=== PATIENT | female | born 2000 | race African-American/Black ===

== ENCOUNTER 2020-07-13 10:25 | Emergency (ER) | payer MEDICAID ==
[~2020-07-13] VITALS: Ht 162.6 cm; Wt 61.0 kg
[2020-07-13 10:28] VITALS: BP 136/86
[2020-07-13] MEDS ORDERED: TETRACAINE 0.5% OPHTH DROPS 4ML LEFTEYE ONE (12:30)
[2020-07-13] MEDS ORDERED: FLUORESCEIN SODIUM 1MG/STRIP LEFTEYE ONE (12:30)
== END 2020-07-13 13:24 | disposition home or self-care (01) ==
LOC: ER 10:55
DX: H10.32 Unspecified acute conjunctivitis, left eye (principal); Z98.890 Other specified postprocedural states
CPT/HCPCS: 99283